=== PATIENT | male | born 1970 | race Caucasian/White ===

== ENCOUNTER → 2022-02-26 | Day surgery (SDC) | payer OTHER ==
[2022-02-24 13:16] VITALS: BP 131/92
[~2022-02-26] VITALS: Ht 190.5 cm; Wt 121.6 kg
[~2022-02-26] MED LIST: GLYBURIDE2.5 MG PO; MELOXICAM7.5 MG PO; METFORMIN HYD1000 MG PO; NEURONTIN600 MG PO; PERCOCET 10-321 EACH PO; TRULICITY1.5 MG/0.5 SC; VIBRAMYCIN100 MG PO; XARELTO10 MG PO; ZESTRIL2.5 MG PO; ZOCOR20 MG PO
[2022-02-26 13:43] VITALS: BP 117/81
[2022-02-26 14:43] VITALS: BP 129/68
[2022-02-26 14:58] VITALS: BP 137/74
[2022-02-26 15:13] VITALS: BP 121/71
[2022-02-26 15:28] VITALS: BP 122/65
[2022-02-26 15:43] VITALS: BP 124/60
[2022-02-27 16:07] LABS: ACID FAST SPEC PROCESSING Tissue Grinding (.)
[2022-02-27 16:07] LABS: ACID FAST SPEC PROCESSING Tissue Grinding (.)
== END | disposition home or self-care (01) ==
LOC: SDC 02-24 12:30
PROVIDERS: ATTEND Podiatrist
DX: S91.302A Unspecified open wound, left foot, initial encounter (principal); S91.105A Unspecified open wound of left lesser toe(s) without damage to nail, initial encounter; M86.172 Other acute osteomyelitis, left ankle and foot; M86.672 Other chronic osteomyelitis, left ankle and foot; I10 Essential (primary) hypertension; E11.9 Type 2 diabetes mellitus without complications; E78.5 Hyperlipidemia, unspecified; K21.9 Gastro-esophageal reflux disease without esophagitis; F17.210 Nicotine dependence, cigarettes, uncomplicated; X58.XXXA Exposure to other specified factors, initial encounter; Y93.89 Activity, other specified; Y92.89 Other specified places as the place of occurrence of the external cause; Y99.8 Other external cause status

== ENCOUNTER → 2022-07-23 | Day surgery (SDC) | payer OTHER ==
[~2022-07-23] VITALS: Ht 190.5 cm; Wt 121.6 kg
[~2022-07-23] MED LIST changes: +ASPIRIN ADULT L81 M1 PO; +TRAMADOL HCL50 MG PO
[2022-07-23 07:00] VITALS: BP 137/68
[2022-07-23 09:35] VITALS: BP 110/77
[2022-07-23 09:50] VITALS: BP 97/66
[2022-07-23 10:05] VITALS: BP 107/74
[2022-07-23 10:20] VITALS: BP 116/80
[2022-07-23 10:35] VITALS: BP 110/65
[2022-07-24 11:07] LABS: ACID FAST SPEC PROCESSING Tissue Grinding (.)
== END | disposition home or self-care (01) ==
LOC: SDC 07-21 10:15
PROVIDERS: ATTEND Podiatrist Foot & Ankle Surgery
DX: M20.41 Other hammer toe(s) (acquired), right foot (principal); S91.104A Unspecified open wound of right lesser toe(s) without damage to nail, initial encounter; I10 Essential (primary) hypertension; E11.9 Type 2 diabetes mellitus without complications; F32.A Depression, unspecified; F41.9 Anxiety disorder, unspecified; F17.210 Nicotine dependence, cigarettes, uncomplicated; K21.9 Gastro-esophageal reflux disease without esophagitis; E78.5 Hyperlipidemia, unspecified; G47.33 Obstructive sleep apnea (adult) (pediatric); Z99.89 Dependence on other enabling machines and devices; X58.XXXA Exposure to other specified factors, initial encounter; Y93.89 Activity, other specified; Y92.89 Other specified places as the place of occurrence of the external cause; Y99.8 Other external cause status

== ENCOUNTER → 2022-11-24 | Outpatient (CLI) | payer OTHER | END | disposition home or self-care (01) | LOC: MRI 01:17 | PROVIDERS: ATTEND Podiatrist | DX: M76.822 Posterior tibial tendinitis, left leg (principal); M67.472 Ganglion, left ankle and foot; M19.072 Primary osteoarthritis, left ankle and foot; D17.24 Benign lipomatous neoplasm of skin and subcutaneous tissue of left leg; M67.874 Other specified disorders of tendon, left ankle and foot ==

== ENCOUNTER → 2023-12-23 | Outpatient (CLI) | payer OTHER | END | disposition home or self-care (01) | LOC: RESCLI 00:38 | PROVIDERS: ATTEND Internal Medicine | DX: E11.22 Type 2 diabetes mellitus with diabetic chronic kidney disease (principal); I12.9 Hypertensive chronic kidney disease with stage 1 through stage 4 chronic kidney disease, or unspecified chronic kidney disease; N18.9 Chronic kidney disease, unspecified; E78.5 Hyperlipidemia, unspecified; M19.90 Unspecified osteoarthritis, unspecified site; G89.29 Other chronic pain; K21.9 Gastro-esophageal reflux disease without esophagitis; G62.9 Polyneuropathy, unspecified; I25.10 Atherosclerotic heart disease of native coronary artery without angina pectoris; G47.00 Insomnia, unspecified; F17.210 Nicotine dependence, cigarettes, uncomplicated; Z79.82 Long term (current) use of aspirin; Z79.4 Long term (current) use of insulin; Z79.899 Other long term (current) drug therapy ==